=== PATIENT | male | born 2000 | race Two or more races ===

== ENCOUNTER 2023-07-29 23:19 | Emergency (ER) | payer SELFPAY ==
[2023-07-29 23:32] VITALS: BP 135/78; PULSE 86; RESP 16; TEMP 37.2; O2SAT 99; BMI 24.0
[2023-07-30] MEDS: lidocaine 1% INJ 10 mL (per mL) 20 ML INJECTION (00:50)
--- NOTE | 2023-07-30 00:51 | PC.NURSE ---
LIDOCAINE ADMINISTERED BY DR. SCHROEDER.
--- NOTE | 2023-07-30 00:55 | W.ED.ANIMALB ---
HPI - Animal Bite General: Chief Complaint: Animal Bite Stated Complaint: Spider Bite Time Seen by Provider: 07/29/23 23:26 Source: patient Mode of arrival: ambulatory Limitations: no limitations History of Present Illness: 22-year-old male states he had an abscess to his left inner leg over the last 4 days is swollen red no drainage he stated is painful especially to touch and when he walks. Denies any fevers denies any worsening proving factors Associated symptoms: Deny chills or fever(s) Review of Systems Const: Denies: fever(s) or chills ENMT: Denies: throat pain or dental pain Card: Denies: chest pain Resp: Denies: dyspnea GI: Denies: abdominal pain, nausea, vomiting or diarrhea Musc: Denies: neck pain or back pain Skin/Breast: Reports: erythema Physical Exam Const: COMMON NORMALS: no acute distress and patient oriented x3 HENMT: COMMON NORMALS: normocephalic HEAD & SCALP: normocephalic Eye: COMMON NORMALS: conjunctivae normal CONJUNCTIVA: Yes conjunctivae normal Neck/C-Spine: COMMON NORMALS: supple Chest: COMMONS NORMALS: normal inspection of the chest Resp: COMMON NORMALS: normal respiratory effort Cardio: COMMON NORMALS: regular rate RATE: regular rate GI: INSPECTION: Yes normal to inspection Extremity: COMMON NORMALS: full ROM Neuro: COMMON NORMALS: patient oriented x3 Psych: COMMON NORMALS: mental status grossly normal Skin: NARRATIVE SKIN EXAM: 2 cm abscess to left inner knee Procedures Abscess I/D Site: lower extremity Side (if applicable): left Local Anesthetic: lidocaine 1% Amount of anesthesia used (mL): 8 Technique: incised with #11 blade Packing used?: none Course Vital Signs: Vital signs: Vital Signs Temperature 99.0 F 07/29/23 23:32 Pulse Rate 86 07/29/23 23:32 Respiratory Rate 16 07/29/23 23:32 Blood Pressure 135/78 07/29/23 23:32 Pulse Oximetry 99 07/29/23 23:32 Oxygen Delivery Me thod Room Air 07/29/23 23:32 MDM - Animal Bite Medical Decision Making Patient presents with an abscess to his left inner leg abscess was incised and drained we will place him on Bactrim he is to follow-up with PCP and return if worsening Discharge Plan Discharge Patient Disposition: Home Clinical Impression: Abscess Condition: Stable Prescriptions: New sulfamethoxazole-trimethoprim [Bactrim DS] 800-160 mg tablet 1 tab PO BID 10 Days Qty: 20 0RF Discharge Orders: Discharge ED (Routine); Ordered 07/30/23 Ordered By: Flora Hernández Discharge Diet: Advance as tolerated Discharge Activity: Resume usual activity Patient Instructions: Abscess (ED) Coding Level of Care Code ED Family Practice Physician for Danish Shaffer
== END 2023-07-30 01:02 | disposition home or self-care (01) ==
PROVIDERS: Emergency Provider Emergency Medicine
DX: L02.416 Cutaneous abscess of left lower limb (principal)
CPT/HCPCS: 10060; 99283

== ENCOUNTER 2024-11-28 13:06 | Emergency (ER) | payer OTHER, SELFPAY ==
[2024-11-28 13:19] VITALS: BP 150/88; PULSE 77; RESP 16; TEMP 36.8; O2SAT 100; BMI 23.6
--- NOTE | 2024-11-28 15:00 | W.ED.HA ---
HPI - Headache General: Chief Complaint: Headache Stated Complaint: headache Time Seen by Provider: 11/28/24 14:29 History of Present Illness: This is a healthy 24-year-old man who presents emergency room with headache. He had a mild fever this morning he says. He has had some mild congestion. No cough. No shortness of breath. No altered mental status. He is had a headache for couple days with photophobia. He had 1 episode of vomiting yesterday. He has no history of migraine headaches. He complains of a posterior headache and some aching down into his neck and back and shoulders. He has no nuchal rigidity. No altered mental status. No focal motor deficits. He appears in no distress on presentation. He had been seen at an urgent care and was told that this was likely viral. They had read some things on the Internet and were becoming more concerned so they wanted to be evaluated in the emergency room. Related Data Previous Rx's Medication Instructions Recorded dexamethasone 6 mg tablet 6 mg PO DAILY 5 days #5 tabs 11/28/24 diclofenac sodium 50 mg 50 mg PO BID PRN pain #14 tabs 11/28/24 tablet,delayed release Allergies Allergy/AdvReac Type Severity Reaction Status Date / Time No Known Allergies Allergy Verified 11/28/24 13:23 Review of Systems Narrative: Constitutional symptoms: Negative except as documented in HPI. Skin symptoms: Negative except as documented in HPI. Eye symptoms: Negative except as documented in HPI. ENMT symptoms: Negative except as documented in HPI. Respiratory symptoms: Negative except as documented in HPI. Cardiovascular symptoms: Negative except as documented in HPI. Gastrointestinal symptoms: Negative except as documented in HPI. Genitourinary symptoms: Negative except as documented in HPI. Musculoskeletal symptoms: Negative except as documented in HPI. Neurologic symptoms: Negative except as documented in HPI. Psychiatric symptoms: Negative except as documented in HPI. Endocrine symptoms: Negative except as documented in HPI. Physical Exam Narrative: EXAM NARRATIVE: General: Alert, no acute distress. Skin: Warm, dry. Head: Normocephalic, atraumatic. Neck: Supple, trachea midline. Eye: Extraocular movements are intact. Ears, nose, mouth and throat: mucosa moist. Cardiovascular: Regular, Normal peripheral perfusion. Respiratory: Lungs are clear to auscultation, respirations are non-labored, breath sounds are equal, Symmetrical chest wall expansion. Gastrointestinal: Soft, Nontender, Non distended Musculoskeletal: Normal ROM, no deformity. Neurological: Alert and oriented, No focal neurological deficit observed. Psychiatric: Cooperative, appropriate mood & affect. Course Vital Signs: Vital signs: Vital Signs Temperature 98.2 F 11/28/24 13:19 Pulse Rate 77 11/28/24 13:19 Respiratory Rate 16 11/28/24 13:19 Blood Pressure 150/88 11/28/24 13:19 Pulse Oximetry 100 11/28/24 13:19 Oxygen Delivery Me thod Room Air 11/28/24 13:19 MDM - Headache Medical Decision Making Spoke at length with the patient and his significant other. He does not have any signs of anything serious at this point. No nuchal rigidity. He moves his neck fluidly. This does seem like it is most likely something viral. [facility] have been called in already but they have not picked it up. I discussed conservative treatment at this time with some steroid and anti-inflammatory along with his nausea meds and attempt oral hydration at home. If he worsens he can return to the emergency room. I offered to do a workup here now but also discussed that this with probably have very little Assessment and plan: Viral illness Headache - Discharged home - Discussed plan with patient. Answered any questions. - Evaluation and treatment of this problem were appropriate in the emergency setting. No radiology studies performed this visit Discharge Plan Discharge Patient Disposition: Home Clinical Impression: Headache, Viral illness Condition: Stable Prescriptions: New dexamethasone 6 mg tablet 6 mg PO DAILY 5 Days Qty: 5 0RF diclofenac sodium 50 mg tablet,delayed release (DR/EC) 50 mg PO BID PRN (Reason: pain) Qty: 14 0RF Discharge Orders: Discharge ED (Routine); Ordered 11/28/24 Ordered By: Sabina Evans Discharge Diet: Usual diet Discharge Activity: Increase activity as tolerated Patient Instructions: Viral Syndrome (ED), Opioid Safety, Pain Management Activity Restrictions/Additional Instructions: Thank you for choosing [facility] for your healthcare needs today. Please realize this is an emergency room and that we are providing you with a medical screening exam and this may not be complete and all inclusive of all the testing and or work up that you may need to determine your ailment or severity of your illness. You have been screened and evaluated and felt safe for discharge. Health conditions do change or evolve sometimes and as such it is important that you follow up with your Primary Doctor to be re checked, 3-5 days is a general good time frame for follow up. You are always welcome to return to the ED for re assessment if your symptoms are worsening or you have new concerns Coding Level of Care Code ED Refrigeration Brazer/Solderer for Danish Shaffer
== END 2024-11-28 15:08 | disposition home or self-care (01) ==
PROVIDERS: Emergency Provider Emergency Medicine
DX: R51.9 Headache, unspecified (principal); B34.9 Viral infection, unspecified
CPT/HCPCS: 99283